=== PATIENT | male | born 1960 | race Caucasian/White ===

== ENCOUNTER 2017-10-06 22:47 | Observation (INO) | payer BC ==
[~2017-10-06] VITALS: Ht 182.9 cm; Wt 136.6 kg
[~2017-10-06 22:47] MED LIST: NAPROSYN500 MG PO; PERCOCET 5/31 TABLET PO
[2017-10-06 23:17] LABS: MCH 30.7 PG (29.0-34.0); MCHC 33.2 G/DL (30.0-36.0); MCV 92.4 FL (86-99); MEAN PLAT.VOLUME 10.5 uM^3 (9.0-12.4); PLATELET COUNT 315 K/uL (156-360); RBC DIS.WIDTH-CV 14.5 % (11.8-14.6); RBC DIS.WIDTH-SD 48.1 % (39-53); RED BLOOD COUNT 3.68 M/uL (4.00-5.50); WHITE BLOOD COUNT 7.2 K/uL (4.1-10.2)
[2017-10-06 23:22] LABS: CHLORIDE 111 mEq/L (99-109); POTASSIUM 4.3 mEq/L (3.7-5.4); SODIUM 141 mEq/L (136-147)
[2017-10-06 23:24] LABS: GLUCOSE 115 mg/dL (70-99)
[2017-10-06 23:25] LABS: ANION GAP 6 MEQ/L (2-14)
[2017-10-06 23:28] LABS: GFR ESTIMATE (CALCULATED) 44 mL/min/ (58.99-99999)
[2017-10-06 23:29] LABS: UREA NITROGEN (BUN) 25 mg/dL (9-23)
[2017-10-06 23:35] LABS: TROP-I INTERPRETATION NEGATIVE; TROPONIN-I < 0.01 ng/mL (0.0-0.30)
[2017-10-07 05:45] VITALS: BP 125/59
[2017-10-07 06:46] LABS: TROP-I INTERPRETATION NEGATIVE; TROPONIN-I < 0.01 ng/mL (0.0-0.30)
[2017-10-07 07:03] LABS: DIRECT BILIRUBIN 0.2 mg/dL (0.0-0.3); TOTAL BILIRUBIN 0.9 MG/DL (0.0-1.0)
[2017-10-07 07:09] LABS: ALKALINE PHOSPHATASE 66 IU/L (3-129)
[2017-10-07 07:30] VITALS: BP 128/58
[2017-10-07 11:02] VITALS: BP 144/79
[2017-10-07 11:15] LABS: TROP-I INTERPRETATION NEGATIVE; TROPONIN-I < 0.01 ng/mL (0.0-0.30)
[2017-10-07 14:01] LABS: ANION GAP 11 MEQ/L (2-14); CHLORIDE 108 MEQ/L (99-109); POTASSIUM 4.3 MEQ/L (3.7-5.4); SAMPLE HEMOLYSIS CHECK 0; SAMPLE ICTERIC CHECK 0; SAMPLE LIPEMIA CHECK 0; SODIUM 141 MEQ/L (136-147)
[2017-10-07 14:07] LABS: GFR ESTIMATE (CALCULATED) > 59 mL/min/ (58.99-99999); GLUCOSE 96 mg/dL (70-99); UREA NITROGEN (BUN) 25 mg/dL (9-23)
[2017-10-07] MEDS ORDERED: ASCORBIC ACID500 M3 PO (14:22)
[2017-10-07] MEDS ORDERED: DAILY VALUE1 EACH PO (14:22)
[2017-10-07] MEDS ORDERED: ADVAIR 250/501 DISK IH (14:23)
[2017-10-07] MEDS ORDERED: MOTRIN800 MG PO (14:23)
[2017-10-07] MEDS ORDERED: PROAIR HFA8.5 GM IH (14:24)
[2017-10-07] MEDS ORDERED: TUMS500 MG PO (14:25)
[2017-10-07 15:06] VITALS: BP 148/76
[2017-10-07] MEDS ORDERED: VENTOLIN HFA18 GM IH (15:28)
== END 2017-10-07 16:50 | disposition home or self-care (01) ==
LOC: EME 22:47 → EDOF 10-07 04:11 → 5WEST 10-07 04:11 → EDOF 10-07 04:11 → ENRESERV 10-07 04:13 → 5WEST 10-07 05:29
PROVIDERS: Hospitalist; Nurse Practitioner Family
DX: R07.9 Chest pain, unspecified (principal); R06.09 Other forms of dyspnea; R93.5 Abnormal findings on diagnostic imaging of other abdominal regions, including retroperitoneum; N28.9 Disorder of kidney and ureter, unspecified; E78.5 Hyperlipidemia, unspecified; R53.83 Other fatigue; R50.9 Fever, unspecified; E66.9 Obesity, unspecified; Z68.41 Body mass index [BMI] 40.0-44.9, adult; J45.909 Unspecified asthma, uncomplicated; Z82.49 Family history of ischemic heart disease and other diseases of the circulatory system; Z79.82 Long term (current) use of aspirin; Z88.5 Allergy status to narcotic agent
CPT/HCPCS: 71020; 71275; 76705; 80048; 80076; 83880; 84484; 85027; 87040; 87502; 93005; 94640; 94640 76; 94760; 99202; G0378; J1644; J1940; J2270; J7030